=== PATIENT | female | born 1955 | race Caucasian/White ===

== ENCOUNTER 2021-07-26 11:46 | Emergency (ER) | payer MEDICARE, MEDICAID, SELFPAY ==
--- NOTE | 2021-07-26 11:52 | ED.URI ---
HPI - URI/Sore Throat General Chief Complaint: Upper Respiratory Infection Stated Complaint: Sinus pressure Time Seen by Provider: 07/26/21 11:57 Source: patient, family and RN notes reviewed Mode of arrival: ambulatory Limitations: no limitations History of Present Illness HPI Narrative: 66-year-old female presents to the [facility] with complaints of sinus pressure and pain for 10 days Patient reports sinus pain, congestion, sore throat and ear pain for at least the last 10 days. States she has a history of sinus issues. Denies nausea, vomiting or diarrhea. Denies shortness of breath or chest pain. MD elicited complaint: nasal congestion and sinus pain Related Data Home Medications Medication Instructions Recorded Confirmed albuterol sulfate See Rx Instructions .ROUTE 07/26/21 07/26/21 .COMPLEX PRN alendronate 70 mg PO WEEKLY 07/26/21 07/26/21 diclofenac sodium See Rx Instructions .ROUTE .COMPLEX 07/26/21 07/26/21 estradiol See Rx Instructions .ROUTE .COMPLEX 07/26/21 07/26/21 fluoxetine 20 mg PO DAILY 07/26/21 07/26/21 levothyroxine 88 mcg PO DAILY 07/26/21 07/26/21 lisinopril 5 mg PO DAILY 07/26/21 07/26/21 lovastatin 20 mg PO DAILY 07/26/21 07/26/21 omeprazole 40 mg PO DAILY 07/26/21 07/26/21 ropinirole 1 mg PO DAILY 07/26/21 07/26/21 umeclidinium-vilanterol [Anoro See Rx Instructions .ROUTE .COMPLEX 07/26/21 07/26/21 Ellipta] Allergies Allergy/AdvReac Type Severity Reaction Status Date / Time latex Allergy Mild RASH, Verified 07/26/21 11:56 ITCHING Sulfa (Sulfonamide Allergy Unknown emesis Unverified 07/26/21 11:56 Antibiotics) Review of Systems Review of Systems: All systems reviewed & are unremarkable except as noted in HPI and below Constitutional: Constitutional: Reports no additional constitutional complaints, Denies chills, Denies fever(s) and Denies headache(s) Eyes: Eyes: Reports no additional eye complaints ENT: Reports as per HPI, Denies vertigo, Denies dizziness, Denies headache(s), Reports nasal congestion and Denies sore throat Cardiovascular: Cardiovascular: Reports no additional cardiovascular complaints, Denies chest pain, Denies syncope, Denies rapid heart rate and Denies dyspnea Respiratory: Respiratory: Reports as per HPI, Reports cough, Denies dyspnea and Denies wheezing Gastrointestinal: Gastrointestinal: Reports no additional gastrointestinal complaints, Denies abdominal pain, Denies diarrhea, Denies nausea and Denies vomiting Musculoskeletal: Musculoskeletal: Reports no additional musculoskeletal complaints and Denies numbness Integumentary/Breasts: Skin/Breast: Reports system reviewed and no additional complaints, except as docu Neurologic: Reports system reviewed and no additional complaints, except as documented, Denies vertigo, Denies dizziness, Denies syncope, Denies headache(s), Denies focal weakness and Denies numbness Psychiatric: Psychiatric: Reports no additional psychiatric complaints Allergic/Immunologic: Allergic/Immunologic: Reports no additional allergic/immunologic complaints and Denies wheezing PMFSH Past Medical History Medical History (Updated 07/26/21 @ 18:53 by Aleja Mccormack) Anxiety and depression H/O gastroesophageal reflux (GERD) Hypertension Thyroid disorder Social History Social History (Updated 07/26/21 @ 18:54 by Aleja Mccormack) Living arrangements: with family Gender identity (if verbalized by the patient): Female Comments At the time of my signature, I reviewed and agree with the nursing past medical, surgical, social, and family history. There is no relevant family history pertinent to the patient complaint. Exam Const: General: cooperative, healthy appearing, no acute distress, well developed and alert Nutritional Appearance: well nourished Orientation/consciousness: patient oriented x3 Limitations: no limitations HENMT: Head: normal to inspection Ears: external ears normal, EAC's normal and TM abnormal with fluid b
[2021-07-26 11:57] VITALS: BP 118/61; PULSE 85; RESP 16; TEMP 37.1; O2SAT 97
== END 2021-07-26 12:10 | disposition home or self-care (01) ==
PROVIDERS: Emergency Provider Nurse Practitioner; PCP Family Medicine
DX: J01.40 Acute pansinusitis, unspecified (principal); K21.9 Gastro-esophageal reflux disease without esophagitis; I10 Essential (primary) hypertension; F41.9 Anxiety disorder, unspecified; F32.A Depression, unspecified; E07.9 Disorder of thyroid, unspecified
CPT/HCPCS: 99203; G0463

== ENCOUNTER 2021-07-29 16:00 | Emergency (ER) | payer MEDICARE, MEDICAID, SELFPAY ==
--- NOTE | ~2021-07-29 | XR_ITS ---
EXAMINATION: XR chest 2V EXAM DATE: 07/29/2021 16:45 INDICATION: COUGH X 2 WEEKS. (+) COVID . TECHNIQUE: Frontal and lateral projections of the chest obtained and reviewed. There is no prior amador dy for comparison. FINDINGS: Small to moderate amount of ill-defined bilateral airspace disease, could be COVID pneumon ia given history provided. No pneumothorax or pleural effusion. Moderate-sized gastroesophageal hiata l hernia. There are bony degenerative changes. There is aortic arteriosclerosis. IMPRESSION: 1. Small to moderate ill-defined bilateral airspace disease. 2. Moderate hiatal hernia. Reviewed, dictated and finalized at location G. TEAM COORDINATOR SCHEDULER
[2021-07-29 16:07] VITALS: BP 121/65; PULSE 83; RESP 20; TEMP 37; O2SAT 97
--- NOTE | 2021-07-29 17:06 | ED.GENADULT ---
HPI - General Adult General Chief complaint: Upper Respiratory Infection Stated complaint: cough no taste chest tight Source: patient Mode of arrival: ambulatory Limitations: no limitations History of Present Illness HPI narrative: Patient presents for evaluation of respiratory symptoms. She was evaluated here 3 days ago was treated for sinus infection with Augmentin. She has taken her antibiotics as directed and states she is not getting better. She reports a nonproductive cough, shortness of breath, and chest pain that she describes tightness. She has not experienced any fever, chills, nausea vomiting. She has underlying COPD and continues to smoke a few cigarettes per day. Her daughter and granddaughter recently tested positive for COVID. Pt states she did receive her COVID vaccinations and booster. She tried OTC cough syrup without considerable improvement in her symptoms thereafter. Pt lives with her elderly mother at home. No additional complaints or concerns. Related Data Home Medications Medication Instructions Recorded Confirmed albuterol sulfate 2 puff INHALATION Q4-6H PRN 07/26/21 07/29/21 alendronate 70 mg PO WEEKLY 07/26/21 07/29/21 estradiol 2 applic VAGINAL WEEKLY 07/26/21 07/29/21 fluoxetine 20 mg PO DAILY 07/26/21 07/29/21 levothyroxine 88 mcg PO DAILY 07/26/21 07/29/21 lisinopril 5 mg PO DAILY 07/26/21 07/29/21 lovastatin 20 mg PO DAILY 07/26/21 07/29/21 omeprazole 40 mg PO DAILY 07/26/21 07/29/21 ropinirole 1 mg PO DAILY 07/26/21 07/29/21 umeclidinium-vilanterol [Anoro 1 inh INHALATION DAILY 07/26/21 07/29/21 Ellipta] Allergies Allergy/AdvReac Type Severity Reaction Status Date / Time latex Allergy Mild RASH, Verified 07/29/21 16:43 ITCHING Sulfa (Sulfonamide Allergy Unknown emesis Verified 07/29/21 16:43 Antibiotics) Review of Systems Review of Systems: CONSTITUTIONAL: Denies fever, chills, or sweats. EYES: Denies visual changes, redness, or discharge. ENT: Denies rhinorrhea, congestion, sore throat, or otalgia. CARDIOVASCULAR: Reports chest pain. Denies palpitations, or edema. RESPIRATORY: Reports cough and shortness of breath GASTROINTESTINAL: Denies abdominal pain, nausea, vomiting, or diarrhea. GENITOURINARY: Denies dysuria or hematuria. SKIN: Denies rash or itching. MUSCULOSKELETAL: Denies back pain, joint pain, or myalgia. NEUROLOGIC: Denies headache, numbness, dizziness, or weakness. PSYCHIATRIC: Denies anxiety or depression. [facility] Past Medical History Medical History (Updated 07/29/21 @ 17:14 by JUDY Vegas, ) Anxiety and depression H/O gastroesophageal reflux (GERD) Hypertension Thyroid disorder Surgical History Surgical History No pertinent past surgical history Family History Family History Mother No pertinent past medical history Social History Social History Smoking packs per day: 0.25 Smoking cigarettes per day: 5.0 Smoking status: Current every day smoker Tobacco type: cigarettes Substance use: never Living arrangements: with family Gender identity (if verbalized by the patient): Female Sexual Orientation (if Verbalized by the Patient): Straight or Heterosexual Spiritual care concerns: No Exam Narrative: GENERAL: Well-appearing, well-nourished, and in no acute distress. HEAD: Normocephalic, atraumatic. EYES: PERRLA and EOMI. ENT: Nares clear, no rhinorrhea or epistaxis. Mucous membranes moist. Oropharynx without tonsillar hypertrophy exudate or other lesions. Bilateral TMs pearly solorzano nonbulging NECK: Supple. No adenopathy or masses. No carotid bruits or JVD CHEST: Bilateral rales and wheezing posteriorly. Barking cough noted on exam. HEART: Regular rate and rhythm. No murmur heard. Normal peripheral pulses. ABDOMEN: Soft, nontende
== END 2021-07-29 17:27 | disposition short-term general hospital (02) ==
PROVIDERS: Emergency Provider Nurse Practitioner
DX: U07.1 COVID-19 (principal); K21.9 Gastro-esophageal reflux disease without esophagitis; I10 Essential (primary) hypertension; F17.210 Nicotine dependence, cigarettes, uncomplicated; E07.9 Disorder of thyroid, unspecified; F41.9 Anxiety disorder, unspecified; F32.A Depression, unspecified
CPT/HCPCS: 71046; 87426; 96372; 99213; C9803; G0463; J1100

== ENCOUNTER 2021-08-28 09:18 | Emergency (ER) | payer MEDICARE, MEDICAID, SELFPAY ==
[2021-08-28 09:25] VITALS: BP 102/68; PULSE 96; RESP 16; TEMP 37.2; O2SAT 97
--- NOTE | 2021-08-28 09:26 | ED.EAR ---
HPI - Ear Problem General Chief complaint: Ear Stated complaint: Headache/Ear Pain Time Seen by Provider: 08/28/21 09:20 Source: patient and RN notes reviewed History of Present Illness HPI Narrative: Patient is a 66-year-old female who presents the urgent care with complaints of a severe right ear pain radiating to the neck and head. Patient states that she has never had this pain before . Patient states she has a history of sinusitis and ear infections. Denies any changes in vision. States that the head pain is not a headache but a sharp shooting pain from the ear . Patient denies of any sinus congestion currently. Denies of any known fevers, chills, nausea, vomiting. Patient has not taken anything [id number] for her symptoms. No other acute complaints. No acute distress noted. Patient read the plan of care. Some parts of this dictation were generated by voice recognition software and may contain typographical and/or grammatical inaccuracies. Related Data Home Medications Medication Instructions Recorded Confirmed albuterol sulfate 2 puff INHALATION Q4-6H PRN 07/26/21 08/28/21 alendronate 70 mg PO WEEKLY 07/26/21 08/28/21 estradiol 2 applic VAGINAL WEEKLY 07/26/21 08/28/21 fluoxetine 20 mg PO DAILY 07/26/21 08/28/21 levothyroxine 88 mcg PO DAILY 07/26/21 08/28/21 lisinopril 5 mg PO DAILY 07/26/21 08/28/21 lovastatin 20 mg PO DAILY 07/26/21 08/28/21 omeprazole 40 mg PO DAILY 07/26/21 08/28/21 ropinirole 1 mg PO DAILY 07/26/21 08/28/21 umeclidinium-vilanterol [Anoro 1 inh INHALATION DAILY 07/26/21 08/28/21 Ellipta] Allergies Allergy/AdvReac Type Severity Reaction Status Date / Time latex Allergy Mild RASH, Verified 08/28/21 09:35 ITCHING Sulfa (Sulfonamide Allergy Unknown emesis Verified 08/28/21 09:35 Antibiotics) Review of Systems Review of Systems: CONSTITUTIONAL: Denies fever, chills, or sweats. EYES: Denies visual changes, redness, or discharge. ENT: Denies rhinorrhea, congestion, sore throat. Reports of severe right ear pain radiating to the neck and head CARDIOVASCULAR: Denies chest pain, palpitations, or edema. RESPIRATORY: Denies cough or dyspnea. GASTROINTESTINAL: Denies abdominal pain, nausea, vomiting, or diarrhea. GENITOURINARY: Denies dysuria or hematuria. SKIN: Denies rash or itching. MUSCULOSKELETAL: Denies back pain, joint pain, or myalgia. NEUROLOGIC: Reports of head pain radiating from the right ear All other systems reviewed are negative, except as documented in HPI. [facility] Past Medical History Medical History (Updated 08/28/21 @ 09:44 by COURTNEY HuizarP) Anxiety and depression H/O gastroesophageal reflux (GERD) Hypertension Thyroid disorder Surgical History Surgical History No pertinent past surgical history Family History Family History Mother No pertinent past medical history Social History Social History Smoking packs per day: 0.25 Smoking cigarettes per day: 5.0 Smoking status: Current every day smoker Tobacco type: cigarettes Substance use: never Gender identity (if verbalized by the patient): Female Sexual Orientation (if Verbalized by the Patient): Straight or Heterosexual Spiritual care concerns: No Comments At the time of my signature, I reviewed and agree with the nursing past medical, surgical, social, and family history. There is no relevant family history pertinent to the patient complaint. Exam Narrative: GENERAL: This is a well-nourished, well-developed patient, in no apparent distress. HEAD: normocephalic, atraumatic. EYES: PERRL. Sclera clear/white. Vision is grossly intact. EARS: External ears normal, auditory canals clear and without drainage, moderate fluid noted behind right TM without otitis. TMs normal without perforation. Hearin
== END 2021-08-28 09:53 | disposition home or self-care (01) ==
PROVIDERS: Emergency Provider Nurse Practitioner Family; PCP Nurse Practitioner Family
DX: H92.01 Otalgia, right ear (principal); K21.9 Gastro-esophageal reflux disease without esophagitis; I10 Essential (primary) hypertension; E03.9 Hypothyroidism, unspecified; F17.210 Nicotine dependence, cigarettes, uncomplicated
CPT/HCPCS: 99213; G0463

== ENCOUNTER 2022-01-04 19:49 | Emergency (ER) | payer MEDICARE, MEDICAID, SELFPAY ==
--- NOTE | ~2022-01-04 | XR_ITS ---
EXAMINATION: XR chest 2V Exam Date/Time: 01/04/2022 20:14 CDT HISTORY: COUGH X 3 DAYS. COPD. Comparison: None available. RESULT: Lines, tubes, and devices: Surgical clips at the GE junction. Lungs and pleura: Stable diffuse reticulonodular opacities. Cardiomediastinal silhouette: Stable cardiomediastinal silhouette including a moderate hiatal hernia . Other: No acute osseous or upper abdominal finding. IMPRESSION: No acute cardiopulmonary process. Stable chronic reticulonodular opacities may be secondary to RB-ILD or bronchiolitis. Reviewed, dictated and finalized at location K.
[2022-01-04 19:56] VITALS: BP 117/59; PULSE 102; RESP 20; TEMP 37.1; O2SAT 96
--- NOTE | 2022-01-04 20:21 | ED.GENADULT ---
HPI - General Adult General Chief complaint: Upper Respiratory Infection Stated complaint: sinus infection Source: patient Mode of arrival: ambulatory Limitations: no limitations History of Present Illness HPI narrative: Patient presents for evaluation of sick symptoms for the last 3 days. Symptoms include sinus congestion, white nasal drainage, bilateral otalgia, sore throat, productive cough of white sputum, mild shortness of breath and diarrhea. No fever, chills, nausea, vomiting. No recent sick contacts to her knowledge. She has underlying COPD but continues to smoke. She uses her nebulizers as needed. She had COVID in the past. No additional complaints or concerns. Related Data Home Medications Medication Instructions Recorded Confirmed albuterol sulfate 90 mcg/actuation 2 puff inhalation Q4-6H PRN sob 07/26/21 01/04/22 aerosol inhaler alendronate 70 mg tablet 70 mg PO WEEKLY 07/26/21 01/04/22 estradiol 0.01% (0.1 mg/gram) 2 applic vaginal WEEKLY 07/26/21 01/04/22 vaginal cream fluoxetine 20 mg capsule 20 mg PO DAILY 07/26/21 01/04/22 levothyroxine 88 mcg tablet 88 mcg PO DAILY 07/26/21 01/04/22 lisinopril 5 mg tablet 5 mg PO DAILY 07/26/21 01/04/22 lovastatin 20 mg tablet 20 mg PO DAILY 07/26/21 01/04/22 omeprazole 40 mg capsule,delayed 40 mg PO DAILY 07/26/21 01/04/22 release ropinirole 1 mg tablet 1 mg PO DAILY 07/26/21 01/04/22 umeclidinium 62.5 mcg-vilanterol 1 inh inhalation DAILY 07/26/21 01/04/22 25 mcg/actuation powdr for inhalation (Anoro Ellipta) Allergies Allergy/AdvReac Type Severity Reaction Status Date / Time latex Allergy Mild RASH, Verified 01/04/22 20:31 ITCHING Sulfa (Sulfonamide Allergy Unknown emesis Verified 01/04/22 20:31 Antibiotics) Review of Systems Review of Systems: CONSTITUTIONAL: Denies fever, chills, or sweats. EYES: Denies visual changes, redness, or discharge. ENT: Reports sinus congestion and drainage. Reports sore throat and bilateral otalgia. CARDIOVASCULAR: Denies chest pain, palpitations, or edema. RESPIRATORY: Reports cough and SOB GASTROINTESTINAL: Reports diarrhea. Denies abdominal pain, nausea, vomiting GENITOURINARY: Denies dysuria or hematuria. SKIN: Denies rash or itching. MUSCULOSKELETAL: Denies back pain, joint pain, or myalgia. NEUROLOGIC: Denies headache, numbness, dizziness, or weakness. PSYCHIATRIC: Denies anxiety or depression. [facility] Past Medical History Medical History (Updated 01/04/22 @ 20:38 by JUDY Vegas, ) Aftercare following right shoulder joint replacement surgery Anxiety and depression COPD (chronic obstructive pulmonary disease) H/O gastroesophageal reflux (GERD) Hypertension Thyroid disorder Surgical History Surgical History No pertinent past surgical history Family History Family History Mother No pertinent past medical history Social History Social History Smoking packs per day: 0.25 Smoking cigarettes per day: 5.0 Smoking status: Current every day smoker Tobacco type: cigarettes Substance use: never Gender identity (if verbalized by the patient): Female Sexual Orientation (if Verbalized by the Patient): Straight or Heterosexual Spiritual care concerns: No Exam Narrative: GENERAL: Well-appearing, well-nourished, and in no acute distress. HEAD: Normocephalic, atraumatic. EYES: PERRLA and EOMI. ENT: Nares clear, no rhinorrhea or epistaxis. Mucous membranes moist. There is posterior pharyngeal erythema. Bilateral TMs pearly solorzano nonbulging NECK: Supple. No adenopathy or masses. No carotid bruits or JVD CHEST: Cough present on exam. Clear to auscultation. No respiratory distress. No wheezes rales or rhonchi HEART: Regular rate and rhythm. No murmur heard. Normal peripheral pulses. ABDOMEN: S
== END 2022-01-04 20:40 | disposition home or self-care (01) ==
PROVIDERS: Emergency Provider Nurse Practitioner; PCP Nurse Practitioner Family
DX: J02.9 Acute pharyngitis, unspecified (principal); J44.9 Chronic obstructive pulmonary disease, unspecified; Z20.822 Contact with and (suspected) exposure to COVID-19; F17.210 Nicotine dependence, cigarettes, uncomplicated; K21.9 Gastro-esophageal reflux disease without esophagitis; I10 Essential (primary) hypertension; F41.9 Anxiety disorder, unspecified; F32.A Depression, unspecified; Z86.16 Personal history of COVID-19
CPT/HCPCS: 71046; 87081; 87426; 87804; 87880; 99213; C9803; G0463

== ENCOUNTER 2022-03-15 13:08 | Emergency (ER) | payer MEDICARE, MEDICAID, SELFPAY ==
--- NOTE | ~2022-03-15 | XR_ITS ---
EXAMINATION: XR chest 2V DATE: 03/15/2022 13:46 INDICATION: Smoker with COPD and asthma presenting with chronic worsening cough TECHNIQUE: PA and lateral views of the chest were obtained. COMPARISON: Chest radiograph dated 01/04/2022 and 07/29/2021 FINDINGS: Small lung volumes. Peripheral predominant increased interstitial pattern in both lungs with similar appearance as on the prior radiographs. No pleural effusion or pneumothorax. Heart size is normal. Ga s within a moderate-sized hiatal hernia. Surgical clips in the epigastric region. Mild thoracic spond ylosis. IMPRESSION: 1. Small lung volumes with bilateral peripheral increased interstitial pattern which in the acute set ting could represent mild pulmonary edema or pneumonia however similar appearance is seen on the prio r radiographs which suggests chronic interstitial lung disease. 2. Moderate-sized hiatal hernia. Reviewed, dictated and finalized at location A. IMPRESSION: 1. Small lung volumes with bilateral peripheral increased interstitial pattern which in the acute setting could represent mild pulmonary edema or pneumonia ho wever similar appearance is seen on the prior radiographs which suggests chroni c interstitial lung disease. 2. Moderate-sized hiatal hernia.
[2022-03-15 13:21] VITALS: BP 111/50; PULSE 100; RESP 20; TEMP 36.7; O2SAT 97
--- NOTE | 2022-03-15 13:31 | ED.NAVMDI ---
HPI - Nausea/Vomiting/Diarrhea General Chief complaint: Upper Respiratory Infection Stated complaint: cough nausea Time Seen by Provider: 03/15/22 13:31 Source: patient, RN notes reviewed and old records reviewed Mode of arrival: ambulatory Limitations: no limitations History of Present Illness HPI Narrative: 67-year-old female who presents to express care with with her granddaughter who is also ill. Patient has harsh sounding cough which she reports has increased the past few days with some right sided chest discomfort. Patient denies any fevers chills or sweats or any body aches does have history of COPD. Patient denies any increase in dyspnea,has been using her inhalers and nebulizer as prescribed. Patient reports that her drainage has become a light yellow in color. Patient continues to use tobacco daily. MD elicited complaint: diarrhea and other (cough, right chest discomfort,increased congestion) Pertinent past history: other (copd) Related Data Home Medications Medication Instructions Recorded Confirmed albuterol sulfate 90 mcg/actuation 2 puff inhalation Q4-6H PRN 07/26/21 03/15/22 aerosol inhaler Shortness Of Breath alendronate 70 mg tablet 70 mg PO WEEKLY 07/26/21 03/15/22 estradiol 0.01% (0.1 mg/gram) 2 applic vaginal WEEKLY 07/26/21 03/15/22 vaginal cream fluoxetine 20 mg capsule 20 mg PO DAILY 07/26/21 03/15/22 levothyroxine 88 mcg tablet 88 mcg PO DAILY 07/26/21 03/15/22 lisinopril 5 mg tablet 5 mg PO DAILY 07/26/21 03/15/22 lovastatin 20 mg tablet 20 mg PO DAILY 07/26/21 03/15/22 omeprazole 40 mg capsule,delayed 40 mg PO DAILY 07/26/21 03/15/22 release ropinirole 1 mg tablet 1 mg PO DAILY 07/26/21 03/15/22 umeclidinium 62.5 mcg-vilanterol 1 inh inhalation DAILY 07/26/21 03/15/22 25 mcg/actuation powdr for inhalation (Anoro Ellipta) albuterol sulfate 2.5 mg/3 mL 2.5 mg inhalation Q4H PRN 03/15/22 03/15/22 (0.083 %) solution for nebulization Shortness Of Breath Or Wheezing benzonatate 100 mg capsule 100 mg PO TID PRN Cough 03/15/22 03/15/22 montelukast 10 mg tablet 10 mg PO QPM 03/15/22 03/15/22 Allergies Allergy/AdvReac Type Severity Reaction Status Date / Time latex Allergy Mild RASH, Verified 03/15/22 13:39 ITCHING Sulfa (Sulfonamide Allergy Unknown emesis Verified 03/15/22 13:39 Antibiotics) Review of Systems Review of Systems: CONSTITUTIONAL: Denies fever, chills, or sweats. EYES: Denies visual changes, redness, or discharge. ENT: Positive for rhinorrhea, congestion, no sore throat, or otalgia. CARDIOVASCULAR: right sided chest discomfort,denies palpitations, or edema. RESPIRATORY:Positive harsh cough or dyspnea. GASTROINTESTINAL: Denies abdominal pain, occasional nausea, no vomiting, or diarrhea. GENITOURINARY: Denies dysuria or hematuria. SKIN: Denies rash or itching. MUSCULOSKELETAL: Denies back pain, joint pain, or myalgia. NEUROLOGIC: Denies headache, numbness, or weakness. PSYCHIATRIC: Positive for anxiety or depression. All systems reviewed & are unremarkable except as noted in HPI and below PMFSH Past Medical History Medical History (Updated 03/16/22 @ 00:01 by Andrew Rouse) Aftercare following right shoulder joint replacement surgery Anxiety and depression COPD (chronic obstructive pulmonary disease) H/O gastroesophageal reflux (GERD) Hypertension Thyroid disorder Surgical History Surgical History (Updated 03/19/22 @ 12:11 by Ofelia Lorenzo NP) History of colon surgery History of repair of hiatal hernia History of tonsillectomy Family History Family History Mother No pertinent past medical history Social History Social History (Updated 03/19/22 @ 12:12 by Ofelia Lorenzo NP) Smoking packs per day: 0.25 Smoking cigarettes per day: 5.0 Smoking status: Current every day smoker Tobacco type: cigarettes Substance use: never Gender identity (if verbalized by the patient): Fema
== END 2022-03-15 14:55 | disposition home or self-care (01) ==
PROVIDERS: Emergency Provider Registered Nurse; PCP Nurse Practitioner Family
DX: J18.1 Lobar pneumonia, unspecified organism (principal); F17.210 Nicotine dependence, cigarettes, uncomplicated; J44.9 Chronic obstructive pulmonary disease, unspecified; K21.9 Gastro-esophageal reflux disease without esophagitis; I10 Essential (primary) hypertension; F41.9 Anxiety disorder, unspecified; F32.A Depression, unspecified; E03.9 Hypothyroidism, unspecified
CPT/HCPCS: 71046; 99213; G0463